=== PATIENT | male | born 1940 | race Caucasian/White ===

== ENCOUNTER 2017-01-17 07:58 | Day surgery (SDC) | payer MEDICARE, BC ==
[2017-01-17] MEDS ORDERED: PROPOFOL 500 MG/50 ML EMU IV ONE (08:56)
[2017-01-17 10:41] VITALS: RESP 20; TEMP 97
[2017-01-17 10:46] VITALS: BP 131/60; PULSE 75; O2SAT 98
== END 2017-01-17 10:55 | disposition home or self-care (01) | DRG 951 ==
LOC: SURG 07:58
PROVIDERS: ATTEND Surgery
DX: Z12.11 Encounter for screening for malignant neoplasm of colon (principal); E11.9 Type 2 diabetes mellitus without complications; D12.4 Benign neoplasm of descending colon; Z86.010 Personal history of colon polyps; K57.30 Diverticulosis of large intestine without perforation or abscess without bleeding; K62.1 Rectal polyp; Z79.4 Long term (current) use of insulin
CPT/HCPCS: 82962; J2704

== ENCOUNTER 2018-07-23 16:53 | Inpatient (IN) | payer BC ==
[2018-07-23] MEDS: SODIUM CHLORIDE 0.9% FLUSH 10 ML SOL IV PRN ×2 (17:00→21:49)
[2018-07-23 17:24] LABS: CALCIUM 8.3 mg/dl (8.5-10.1); CARBON DIOXIDE 21.5 mEq/L (21-32); CREATININE 1.89 mg/dl (0.80-1.30); INR 1.01 (0.86-1.12); POTASSIUM 5.1 mMol/L (3.5-5.1)
[2018-07-23 17:33] LABS: BASOPHILS % (AUTO) 1 % (0-3); EOSINOPHILS % (AUTO) 0 % (0-9); HEMATOCRIT 18 % (39-53); LYMPHOCYTES % (AUTO) 8.1 % (10-50); MEAN CORPUSCULAR HEMOGLOBIN 14.7 pg (27.0-32.0); MEAN CORPUSCULAR HGB CONC 26.4 gm/dl (32.0-36.0); MONOCYTES % (AUTO) 9.5 % (0-12); NEUTROPHILS % (AUTO) 80.9 % (37-80)
[2018-07-23 17:37] LABS: MEAN CORPUSCULAR VOLUME 56 fL (80-100)
[2018-07-23 17:42] LABS: HEMOGLOBIN 4.7 gm/dl (13.5-17.7)
[2018-07-23 17:43] LABS: ANISOCYTOSIS MOD AMT; HYPOCHROMASIA PRESENT; POIKILOCYTOSIS MOD AMT
[2018-07-23] MEDS ORDERED: BISACODYL 5 MG TAB ECT PO ONE (18:37)
[2018-07-23] MEDS ORDERED: BISACODYL 5 MG TAB ECT ONE (18:39)
[2018-07-23 18:52] LABS: ABO O; ANTIBODY SCREEN Negative; RH TYPE Positive; UNIT TYPE O POSITIVE
[2018-07-23 18:53] LABS: UNIT TYPE O POSITIVE
[2018-07-23 18:54] LABS: UNIT TYPE O POSITIVE
[2018-07-23 18:56] LABS: UNIT TYPE O POSITIVE
[2018-07-23] MEDS ORDERED: POLYETHYLENE GLYCOL 17 GM/1 TBS PDS PO SCH (19:00)
[2018-07-23] MEDS ORDERED: SODIUM CHLORIDE 0.9% 500 ML 500 ML IV SCH (19:20)
[2018-07-23 19:25] LABS: APPEARANCE,URINE CLEAR; COLOR,URINE YELLOW; GLUCOSE, URINE (UA) NEGATIVE (NEGATIVE)
[2018-07-23 19:26] LABS: BACTERIA 1+ (< 1+); BILIRUBIN,URINE NEGATIVE (NEGATIVE); CRYSTALS NEGATIVE (0-3 AVE/HPF); EPITHELIAL CELLS 0-1 (SQUAMOUS); KETONES,URINE NEGATIVE (NEGATIVE); LEUKOCYTE ESTERASE ,URINE NEGATIVE (NEGATIVE); NITRATE,URINE NEGATIVE (NEGATIVE); OCCULT BLOOD,URINE NEGATIVE (NEG-TRACE); RBC,URINE 0-1 (0-3AV/HPF); UROBILINOGEN,URINE 0.2 (0.2-1.0 EU); WBC,URINE 0-2 (0-5AV/HPF)
[2018-07-23] MEDS: PANTOPRAZOLE SODIUM 40 MG/10 ML PDS IV SCH (21:49)
[2018-07-23] MEDS: FUROSEMIDE 20mg SOL IV SCH (21:50)
[2018-07-23] MEDS: SODIUM CHLORIDE 0.9% 1000ML 1,000 ML IV SCH (23:11)
[2018-07-24] MEDS: SODIUM CHLORIDE 0.9% FLUSH 10 ML SOL IV PRN ×4 (00:49→16:06)
[2018-07-24] MEDS: FUROSEMIDE 20mg SOL IV SCH ×5 (00:50→21:56)
[2018-07-24] MEDS: SODIUM CHLORIDE 0.9% 1000ML 1,000 ML IV SCH (06:34)
[2018-07-24 07:26] LABS: ALBUMIN 2.3 gm/dl (3.4-5.0); BILIRUBIN,TOTAL 0.7 mg/dl (0.2-1.0); CALCIUM 8.1 mg/dl (8.5-10.1); CARBON DIOXIDE 22.9 mEq/L (21-32); CREATININE 1.83 mg/dl (0.80-1.30); POTASSIUM 4.4 mMol/L (3.5-5.1); TOTAL PROTEIN 6.9 gm/dl (6.4-8.2)
[2018-07-24 07:27] LABS: HEMATOCRIT 26 % (39-53); HEMOGLOBIN 7.6 gm/dl (13.5-17.7); MEAN CORPUSCULAR HEMOGLOBIN 19.1 pg (27.0-32.0); MEAN CORPUSCULAR HGB CONC 29.3 gm/dl (32.0-36.0)
[2018-07-24 07:34] LABS: MEAN CORPUSCULAR VOLUME 65 fL (80-100)
[2018-07-24 07:54] LABS: ANISOCYTOSIS MOD AMT; BAND NEUTROPHILS % (MANUAL) 5 %; BASOPHILS % (MANUAL) 0 % (0-3); EOSINOPHILS % (MANUAL) 1 % (0-9); HYPOCHROMASIA MOD; LYMPHOCYTES % (MANUAL) 11 % (10-50); MONOCYTES % (MANUAL) 5 % (0-12); NEUTROPHILS % (MANUAL) 78 % (37-80); POIKILOCYTOSIS MOD AMT
[2018-07-24 07:55] LABS: BURR CELLS PRESENT; HELMET CELLS PRESENT; OVALOCYTES PRESENT; SPHEROCYTES PRESENT; TARGET CELLS PRESENT
[2018-07-24] MEDS ORDERED: MORPHINE SULFATE 10 MG/ML SOL IV ONE (09:34)
[2018-07-24] MEDS ORDERED: PROPOFOL 500 MG/50 ML EMU IV ONE (10:26)
[2018-07-24] MEDS ORDERED: LIDOCAINE HCL 1% MPF 30 SOL ONE (10:26)
[2018-07-24] MEDS ORDERED: LISINOPRIL 20 MG TAB PO SCH (12:00)
[2018-07-24] MEDS ORDERED: FUROSEMIDE 20mg SOL IV SCH (13:15)
[2018-07-24] MEDS: PANTOPRAZOLE SODIUM 40 MG/10 ML PDS IV SCH (16:02)
[2018-07-24 19:06] LABS: UNIT TYPE O POSITIVE
[2018-07-24 19:07] LABS: UNIT TYPE O POSITIVE
[2018-07-24] MEDS: METFORMIN HYDROCHLORIDE 500 MG TAB PO SCH (20:32)
[2018-07-24] MEDS: HUMALOG PEN 100 U/ML SC SCH (20:33)
[2018-07-24] MEDS: TRAMADOL HYDROCHLORIDE 50 MG TAB PO PRN (21:35)
[2018-07-24 22:09] VITALS: RESP 20
[2018-07-25] MEDS: FUROSEMIDE 20mg SOL IV SCH (00:02)
[2018-07-25] MEDS: SODIUM CHLORIDE 0.9% FLUSH 10 ML SOL IV PRN (00:02)
[2018-07-25 00:54] VITALS: O2SAT 92
[2018-07-25] MEDS: TRAMADOL HYDROCHLORIDE 50 MG TAB PO PRN (06:22)
[2018-07-25 07:16] LABS: CALCIUM 7.9 mg/dl (8.5-10.1); CARBON DIOXIDE 24.6 mEq/L (21-32); CREATININE 2.04 mg/dl (0.80-1.30); POTASSIUM 4.9 mMol/L (3.5-5.1)
[2018-07-25 07:17] LABS: HEMATOCRIT 30 % (39-53); HEMOGLOBIN 9.1 gm/dl (13.5-17.7); MEAN CORPUSCULAR HEMOGLOBIN 20.9 pg (27.0-32.0); MEAN CORPUSCULAR HGB CONC 30.6 gm/dl (32.0-36.0)
[2018-07-25 07:28] LABS: MEAN CORPUSCULAR VOLUME 68 fL (80-100)
[2018-07-25 07:57] LABS: BAND NEUTROPHILS % (MANUAL) 0 %; BASOPHILS % (MANUAL) 0 % (0-3); EOSINOPHILS % (MANUAL) 0 % (0-9); HYPOCHROMASIA MOD AMT; LYMPHOCYTES % (MANUAL) 14 % (10-50); MONOCYTES % (MANUAL) 7 % (0-12); NEUTROPHILS % (MANUAL) 79 % (37-80); NUCLEATED RED BLOOD CELLS 1 /100WBCS; POIKILOCYTOSIS MOD AMT
[2018-07-25 07:58] LABS: ANISOCYTOSIS MOD AMT; OVALOCYTES PRESENT; TARGET CELLS PRESENT; TEAR DROP CELLS PRESENT
[2018-07-25 08:09] VITALS: BP 124/68; PULSE 72; TEMP 98.1
[2018-07-25] MEDS: METFORMIN HYDROCHLORIDE 500 MG TAB PO SCH (08:28)
[2018-07-25] MEDS: HUMALOG PEN 100 U/ML SC SCH (08:29)
[2018-07-25] MEDS ORDERED: MULTIVITAMIN2 1 EA TAB PO SCH (09:00)
[2018-07-25] MEDS ORDERED: ALLOPURINOL 100 MG TAB PO SCH (09:00)
[2018-07-25] MEDS ORDERED: PANTOPRAZOLE SODIUM 40 MG ECT PO SCH (09:00)
[2018-07-25 22:39] LABS: *RETICULOCYTE COUNT 2.2 % (0.5-2.0)
[2018-07-26 07:08] LABS: *FERRITIN 12.9 ng/mL (22.0-322.0)
[2018-07-26 07:09] LABS: *FOLATE 15.4 ng/mL (2.6-20.0); *RETICULOCYTE# 0.067 10(6)/uL (0.020-0.110)
== END 2018-07-25 12:15 | disposition home or self-care (01) | DRG 812 ==
LOC: ED 16:53 → UNDOADMIN 19:08 → ACUTE CARE 19:08
PROVIDERS: ADMIT Family Medicine; ATTEND Family Medicine
PROC: 0DJD8ZZ Inspection of Lower Intestinal Tract, Via Natural or Artificial Opening Endoscopic (ICD-10-PCS; principal; 2018-07-24 12:00)
PROC: 0DD78ZX Extraction of Stomach, Pylorus, Via Natural or Artificial Opening Endoscopic, Diagnostic (ICD-10-PCS; 2018-07-24 12:00)
DX: K92.2 Gastrointestinal hemorrhage, unspecified (principal); D72.829 Elevated white blood cell count, unspecified; D64.9 Anemia, unspecified; E11.9 Type 2 diabetes mellitus without complications; Z79.4 Long term (current) use of insulin; R06.02 Shortness of breath; D50.9 Iron deficiency anemia, unspecified; K57.32 Diverticulitis of large intestine without perforation or abscess without bleeding; I10 Essential (primary) hypertension; N18.3 Chronic kidney disease, stage 3 (moderate); Z85.038 Personal history of other malignant neoplasm of large intestine; Z87.19 Personal history of other diseases of the digestive system; K31.9 Disease of stomach and duodenum, unspecified
CPT/HCPCS: 36415; 71045; 80048; 80053; 81001; 82272; 82962; 85007; 85025; 85027; 85610; 86850; 86900; 86901; 86920; 93012; 93306; 96365; 99070; 99285; 99291; 99292; J1815; J1940; J2270; P9016; A9270-GY; J2001; J2704